=== PATIENT | female | born 1990 ===

== ENCOUNTER 2017-11-07 08:07 | Inpatient (IN) ==
[2017-11-07] MEDS ORDERED: Ringers Solution, Lactated 1,000 ML ONE (08:20)
[2017-11-07] MEDS ORDERED: Naloxone 0.4 MG/ML INJ IVP PRN (08:26)
[2017-11-07] MEDS ORDERED: Famotidine 20 MG/2 ML VIAL IVP PRN (08:26)
[2017-11-07] MEDS ORDERED: Metoclopramide 10 MG/2 ML VIAL IVP PRN ×2 (08:26→17:40)
[2017-11-07] MEDS ORDERED: Epidural Premix (fent/bupiv) 110 ML EP ONE (08:39)
[2017-11-07 09:02] LABS: Hematocrit 39.9 % (35.3-44.9); Mean Corpuscular HGB Conc 35.1 g/dL (31.6-35.5); Mean Corpuscular Hemoglobin 31.1 pg (28.0-33.3); Mean Corpuscular Volume 88.7 fL (83.0-100.0); Mean Platelet Volume 12.1 fL (9.4-12.4); Platelet Count 115 K/mcL (140-400); Red Cell Distribution Width 13.4 % (11.5-14.5)
[2017-11-07] MEDS ORDERED: Oxytocin 20 units/ LR 1000 mL 20 UNIT/1,000 ML BAG IVC ONE ×2 (09:07→16:33)
[2017-11-07 09:25] LABS: Neutrophils # 22.2 K/mcL (1.6-8.9)
[2017-11-07 09:26] LABS: Large Platelets Present (Not Present); Platelet Estimate Normal (Normal)
[2017-11-07] MEDS ORDERED: Lidocaine -MPF 1% 2 ML VIAL INFILT ONE (09:59)
[2017-11-07] MEDS ORDERED: Lidocaine -MPF 2% 5 ML VIAL ONE (10:04)
--- NOTE | 2017-11-07 10:36 | OB/GYN History & Physical ---
Date of Encounter: 11/07/17 Time of Encounter: 10:33 Assessment and Plan (1) Prolonged second stage Current visit: Yes Status: Acute admitted for delivery (2) 42 weeks gestation of Current visit: Yes Status: Acute admitted for delivery History of Present Illness Chief complaint: prolonged labor HPI: Ms. Richar Schmitz is a 27 year old female with EDC of . Gestational age of 42w3d presents for prolonged second stage of labor with thick meconium stained fluid. Patient reports SROM at 2100 on 11/06/2017. Patient reports +FM. Denies any complications with . Patient received care with Dr. Dubose. Patient reports she started pushing at home at since 0230. Patient educated on risk of shoulder dystocia, use of vacuum along with possibility of section. Patient declines at this time. Will try epidural, repositioning a rest. Blood type: O+ Rubella: Immune Hep B: Nonreactive GBS: Negative Past Med Surg Social Fam HX - Past Medical History Source: patient Medical history: no medical history Psychiatric history: no psych history - Past Surgical History Surgical History: no surgical history - Social History Smoking Status: Never smoker Alcohol use: none Drug use: none Current living situation: Home - Independent Activity Level: Independent ambulation Obstetrical History - Pregnancies : 2 Para: 0 Term: 0 : 0 Ab's: 1 Livin Medications and Allergies Pnv95/Ferrous Fumarate/FA [ Vitamin Tablet] 1 each PO 11/07/17 [History] 3 Allergy/AdvReac Type Severity Reaction Status Date / Time No Known Allergies Allergy Verified 11/07/17 08:37 Review of System OB - Constitutional Constitutional ROS IM: no chills, no fever(s), no headache(s) - Cardiovascular Cardiovascular: no chest pain, no edema, no lightheadedness, no palpitations, no syncope - Respiratory Respiratory: no cough - Gastrointestinal Gastrointestinal: no diarrhea, no heartburn, no nausea, no vomiting - Genitourinary Genitourinary: vaginal discharge (per HPI), no abnormal vaginal bleeding, no dysuria, no flank pain, no urinary urgency, no vaginal odor, no vaginal pruritis Exam - Vital Signs Vital signs: Initial Vital Signs Temp Pulse Resp 98.4 F 101 18 11/07/17 08:52 11/07/17 08:52 11/07/17 08:52 - Constitutional Constitutional: well developed, well nourished, no acute distress, average body habitus - HEENT HEENT: Normocephaly, Mucus Membranes Moist - Neck Neck exam: full ROM, supple - Lungs Respiratory exam: CTAB - Cardiovascular Cardiovascular exam: RRR, +S1, +S2 - Abdomen Abdomen: Present: bowel sounds normal, gravid, non tender - Extremities Extremities exam: full ROM, normal inspection Deep Tendon Reflex Grade: 2+ Normal - Cervix Dilation: 10 Effacement: 100 Station: +1 - Uterus Uterus exam: Present: normal size, normal contour - Anus/Rectum Anus/Rectum: Present: normal perianal skin - Comments Comments: FHR 130 bpm moderate variability +15x15 accels with variable decels with pushing noted Results Result Diagrams: 11/07/17 08:47 Abnormal lab results WBC 24.1 K/mcL (4.3-11.1) H 11/07/17 08:47 Plt Count 115 K/mcL (140-400) L 11/07/17 08:47 Band Neutrophils % 10.0 % (0-4) H 11/07/17 08:47 Neutrophils # 22.2 K/mcL (1.6-8.9) H 11/07/17 08:47 Large Platelets Present (Not Present) A 11/07/17 08:47 All other labs normal. - VTE Reasons for not Prescribing Prophylaxis: Treatment not Indicated - Low risk for VTE
--- NOTE | 2017-11-07 10:41 | Anesthesia Evaluation PreOp ---
Date of Encounter: 11/07/17 Time of Encounter: 09:19 - Past History Planned Operation: vaginal del, G1 postdate, prolonged second st Cardiac History: Denies any Significant Hx (ROM 2100 11/06, thick meconium.) Pulmonary History: Denies Any Significant HX GLASS CUTTER HAND History: Denies Any Significant HX Other Medical History: Denies Any Significant HX Anesthesia History: No Prior Anesthetic Complications, Past Anesthesia Alcohol Use: none Drug use: none Medications and Allergies Pnv95/Ferrous Fumarate/FA [ Vitamin Tablet] 1 each PO 11/07/17 [History] 3 Allergy/AdvReac Type Severity Reaction Status Date / Time No Known Allergies Allergy Verified 11/07/17 08:37 Anesthesia Results - Labs 11/07/17 08:47 Anesthesia Exam - HEENT Pupil (Motor): Pupils equal Mallampati: II Teeth: Normal Oral Opening: Greater than 3 - GLASS CUTTER HAND LOC: Oriented GLASS CUTTER HAND Motor: Normal RUE, Normal LUE, Normal RLE, Normal LLE, Normal Face GLASS CUTTER HAND Sensory: Normal: RUE, LUE, RLE, LLE, Face - Cardiac Rhythm: Regular Murmur: None - Pulmonary Breath Sounds: bilateral Clear Respiratory Effort: Symmetrical Anesthesia Assess/Plan ASA Score: 2 Modified Seth Scale for Level of Consciousness: Cooperative, oriented, and tranquil Anesthetic Plan: General, Regional (patient does not desire regional at this time.) Monitoring Plan: Standard Monitors Recovery Plan: PACU
[2017-11-07] MEDS ORDERED: Penicillin G Potassium 5,000,000 UNIT in 0.9 % Sodium Chloride Mini Bag 100 ML IVPB ONE (11:11)
--- NOTE | 2017-11-07 11:23 | Event Note ---
Date of Encounter: 11/07/17 Time of Encounter: 11:00 Discussed patient and POC with Dr. Ignacio. Will start antibiotics for prophylaxis.
--- NOTE | 2017-11-07 11:25 | Anesthesia Procedures ---
Date of Encounter: 11/07/17 Time of Encounter: 11:01 Procedures: Anesthesia - Epidural/Spinal Patient ID/Chart reviewed: Yes Patient examined: Yes (patient afebrile, not tachycardic, WBC 24K ) OB Eval: Gestational age: post term OB Eval: : 1 OB Eval: Dilated at (cm): 10 OB Eval: Contractions: Non-stressed pattern Consent Obtained: Yes (patient desires regional at this time.) Supplemental Oxygen: None/Room Air Supplemental Oxygen Rate (L/min): 10 Site Prep: Aseptic Technique, Sterile prep and drape, 0.5% Chlorhexidine/Alcohol Patient position: right lateral decubitus Local Anesthetic: Lidocaine 1% Amount of Local Anesthetic used: 2 Touhy Needle Gauge: 18 Touhy Needle Depth (cm): 6 Catheter Depth at Skin (cm): 10 Test Dose (1.5% Lido + Epi): Volume given (mls): 3 Test Dose Result: Negative Loading Dose: Other: 10 ml from solution Loading Dose Administered: Thru Catheter Infusion Med: 0.125% Bupivacaine w/ 2 mcg/ml Fentanyl Infusion Rate (mls/hr): [address]: Tegaderm, Tape Interspace Used: L3-L4 Loss of Resistance (SOPHIA): Yes (saline) Blood: No CSF: No Paresthesia: No Procedure: vss though out procedure, FHR stable per RN;s
[2017-11-07] MEDS: Ringers Solution, Lactated 1,000 ML IVC SCH ×2 (11:51→13:38)
[2017-11-07] MEDS ORDERED: Penicillin G Potassium 2,500,000 UNIT in 0.9 % Sodium Chloride 100 ML IVPB SCH (12:00)
[2017-11-07] MEDS ORDERED: Penicillin G Potassium 2,500,000 UNIT in D5% in Water 100 ML IVPB SCH (12:00)
[2017-11-07] MEDS ORDERED: CeFAZolin Premix DUPLEX 2,000 MG/50 ML BAG IVPB ONE (13:33)
[2017-11-07] MEDS ORDERED: *HR* Phenylephrine 10 MG/ML VIAL ONE (13:34)
[2017-11-07] MEDS ORDERED: Lidocaine/EPI 1:200k 2% PF 20 ML VIAL ONE (13:36)
[2017-11-07] MEDS ORDERED: *HR* Oxytocin 10 UNIT/ML VIAL IM ONE (13:51)
[2017-11-07] MEDS ORDERED: *HR* FentaNYL (PF) 100 MCG/2 ML VIAL ONE (13:53)
[2017-11-07] MEDS ORDERED: Morphine Sulfate/PF 5mg/10mL Vial ONE (13:53)
--- NOTE | 2017-11-07 15:22 | OB/GYN Procedure Note ---
<Clari Perez - Last Filed: 11/07/17 15:20> Section - Date of procedure: 11/07/17 Preop diagnosis: arrest of descent Post-op diagnosis: same Procedure: section Surgeon: Mark Ignacio Estimated blood loss (cc): 500 Was there an delinquent tax collection assistant present: Yes Microeconomics Professor: Clari Perez Anesthesiologist: Ternton Camacho Broker: Taiwo Stern Anesthesia Type: Epidural section complications: none Disposition: PACU Specimens: Placenta, Cord blood - Infant (s) A Infant Delivery Date: 11/07/17 Infant Delivery Time: 14:23 Presentation: vertex Position: ЕКАТЕРИНА Route of delivery: other () Gender: Female Viability: Viable Pounds: 8 Ounces: 11 Gram Weight: 3945 kg at 1 minute: 9 at 5 minutes: 9 Specimens collected: cord blood Placenta: complete extraction Cord: 3 umbilical vessels <Mark Ignacio - Last Filed: 11/08/17 17:41> Section - Narrative Narrative: Patient was taken to the operating room. She was placed in supine position. She was prepped and draped in usual manner. After appropriate timeout was performed, the abdomen was entered through standard Maylard incision. The Koby retractor was placed. The peritoneum overlying the lower uterine segment was incised in the U-shaped manner. The uterine cavity was entered sharply and extended laterally. Meconium stained fluid was noted. With fundal pressure, head was delivered. The infant was suctioned upon delivery of the head. The remainder of the infant was delivered, umbilical cord doubly clamped and cut, and the was handed to nursery staff for further evaluation. The placenta was removed and sent to pathology for analysis. The uterus was closed with 0 Monocryl. The peritoneum was reapproximated from the bladder to the uterus with a 2-0 Vicryl. After assurance of hemostasis, closed standard fashion using 0 Vicryl on the fascia and 3-0 Monocryl in the skin. Counts were correct. Patient did well and was taken to recovery room in stable condition.
[2017-11-07] MEDS ORDERED: *HR* Promethazine 25 MG/ML VIAL IVP PRN (15:37)
[2017-11-07] MEDS ORDERED: *HR* OxyCODONE Immed Rel 5 MG TABLET PO PRN (15:37)
[2017-11-07] MEDS ORDERED: MORPHINE SUL Oral CONC 10 MG/0.5 ML ORAL.SYG SL PRN (15:37)
[2017-11-07] MEDS ORDERED: Acetaminophen IV 1,000 MG/100 ML INFUS..BTL IVPB ONE (15:40)
[2017-11-07] MEDS ORDERED: ceFAZolin 1,000 MG in D5% in Water (Mini-Bag+) 100 ML IVPB SCH (17:40)
[2017-11-07] MEDS ORDERED: Ondansetron 4 MG/2 ML VIAL IVP PRN (17:40)
[2017-11-07] MEDS ORDERED: Acetaminophen IV 1,000 MG/100 ML INFUS..BTL IVPB SCH (17:40)
[2017-11-07] MEDS ORDERED: Sennosides 8.6 MG TABLET PO PRN (17:40)
[2017-11-07] MEDS ORDERED: Oxytocin 20 units/ LR 1000 mL 20 UNIT/1,000 ML BAG IVC SCH (17:40)
[2017-11-07] MEDS ORDERED: *HR* OxyCODONE/APAP 5/325 TABLET PO PRN (17:40)
[2017-11-07] MEDS ORDERED: Simethicone 80 MG TAB.CHEW PO PRN (17:40)
--- NOTE | 2017-11-07 18:23 | Anesthesia Evaluation Post Op ---
Date of Encounter: 11/07/17 Time of Encounter: 18:21 - Vital Signs Vital Signs: vss - Lungs Lungs: Clear Ascult./Percussion - Airway Airway: Non-obstructed - Mental Status Mental Status: Asleep with brisk response to light stimulation - Pain Pain Scale used: Soto-Nella (Faces) (tolerable) - Nausea Vomiting Nausea Vomiting: Not Present - Hydration Hydration: Ice chips - Discharge PostOp Status: Transfer Patient to floor
[2017-11-07] MEDS ORDERED: Acetaminophen IV 1,000 MG/100 ML INFUS..BTL IVPB PRN (19:26)
[2017-11-07] MEDS: ceFAZolin 1,000 MG in Water for inj. (sterile) 20 ML 10 ML IVP SCH (21:14)
[2017-11-08 04:32] LABS: Basophils % 0.1 %; Eosinophils % 0.1 %; Hematocrit 29.4 % (35.3-44.9); Immature Granulocytes % 0.6 % (0-4); Lymphocytes # 1.5 K/mcL (0.6-4.6); Lymphocytes % 7.9 %; Mean Corpuscular HGB Conc 34.7 g/dL (31.6-35.5); Mean Corpuscular Hemoglobin 30.8 pg (28.0-33.3); Mean Corpuscular Volume 88.8 fL (83.0-100.0); Monocytes # 0.9 K/mcL (0.0-1.3); Monocytes % 4.7 %; Neutrophils # 16.1 K/mcL (1.6-8.9); Platelet Count 114 K/mcL (140-400); Red Blood Count 3.31 M/mcL (3.82-4.97); Red Cell Distribution Width 13.4 % (11.5-14.5); Segmented Neutrophils % 86.6 %
[2017-11-08 04:36] LABS: Hemoglobin 10.2 g/dL (11.5-15.4)
[2017-11-08] MEDS: ceFAZolin 1,000 MG in Water for inj. (sterile) 20 ML 10 ML IVP SCH (05:50)
[2017-11-08] MEDS: Prenatal Vit/FA 1 EACH TABLET PO SCH (09:40)
--- NOTE | 2017-11-08 14:45 | OB/GYN Progress Note ---
Date of Encounter: 11/08/17 Time of Encounter: 14:42 - Assessment and Plan (1) Status post primary low transverse section Current Visit: Yes Status: Acute POD #1 Meeting all pp milestones Continue routine pp care Plan for discharge tomorrow (2) anemia Current Visit: Yes Status: Acute (3) Breast feeding status of mother Current Visit: Yes Status: Acute consult prn Subjective - Subjective Principal diagnosis: s/p section Interval history: Feeling well OOB without dizziness Cramping minimal - requesting ibuprofen every 2-3 hours Some nipple soreness Voiding without difficulty Passing flatus, no BM yet Tolerating regular diet Patient reports: appetite normal, voiding normally, pain well controlled, ambulating normally : doing well, nursing well Objective - Vital Signs Latest vital signs: Vital Signs Temp Pulse Resp BP Pulse Ox 11/08/17 14:13 98.6 F 108 18 127/81 100 11/08/17 09:55 16 11/08/17 08:42 98.5 F 89 10 99/58 97 11/07/17 23:00 98.7 F 99 18 117/72 96 11/07/17 21:14 98.2 F 104 16 118/75 98 11/07/17 20:19 98.3 F 94 16 114/72 96 11/07/17 18:37 98.5 F 111 12 104/67 97 11/07/17 17:45 98.5 F 103 12 107/67 97 Intake and Output 11/07/17 11/08/17 11/08/17 23:59 07:59 15:59 Intake Total 1600 / 1600 Output Total 2600 / 2600 1200 / 1200 2300 / 2300 Balance -2590 / -2590 -1190 / -1190 -700 / -700 Intake: IV Fluids Ancef 1,000 MG In Water for inj . (sterile) 10 ML @ 200 mls/hr IVP Q8H [facility] Rx#:[id number] Oral 1600 / 1600 Output: Urine 1200 / 1200 2300 / 2300 Catheter 2600 / 2600 Other: Meal Lunch Percent of Meal Consumed 100% Weight 71.305 kg - Exam Lungs: bilateral: normal Chest: Normal S1, Normal S2 Extremities: Present: normal Abdomen: Present: normal appearance, soft Incision: Present: normal, dressed Uterus: Present: normal, firm Fundal Height: 0 (at umbilicus) - Labs Labs: Laboratory Results - last 24 hr 11/08/17 04:21 WBC 18.6 H RBC 3.31 L Hgb 10.2 L D Hct 29.4 L MCV 88.8 MCH 30.8 MCHC 34.7 RDW 13.4 Plt Count 114 L MPV 12.0 Immature Gran % 0.6 Seg Neutrophils % 86.6 Lymphocytes % 7.9 Monocytes % 4.7 Eosinophils % 0.1 Basophils % 0.1 Neutrophils # 16.1 H Lymphocytes # 1.5 Monocytes # 0.9 Eosinophils # 0.0 Basophils # 0.0
[2017-11-08] MEDS: Ibuprofen 600 MG TABLET PO PRN ×2 (15:01→21:25)
[2017-11-09] MEDS: Ibuprofen 600 MG TABLET PO PRN ×2 (05:58→13:36)
[2017-11-09] MEDS: Prenatal Vit/FA 1 EACH TABLET PO SCH (08:25)
[2017-11-09 09:02] VITALS: BP 111/72
--- NOTE | 2017-11-09 10:47 | Discharge Summary ---
Date of Encounter: 11/09/17 Time of Encounter: 10:15 - Discharge Diagnosis (1) Status post primary low transverse section Priority: Primary Status: Acute Comments: POD #2 VSS Pain well controlled with percocet Meeting all milestones without difficulty Continue routine care Plan for discharge today with precautions (2) anemia Priority: Secondary Status: Acute Comments: Will discharge home on iron (3) Breast feeding status of mother Priority: Secondary Status: Acute - Discharge Medications Prescriptions: Ibuprofen [Motrin] 600 mg PO Q8HR PRN #30 tab PRN Reason: Mild Pain OxyCODONE/APAP 5/325 [Percocet 5/325 MG] 1 each PO Q8HR PRN 5 Days #15 tablet PRN Reason: Moderate Pain Docusate [Colace] 100 mg PO BID #60 capsule Ferrous Sulfate 325 mg PO DAILY #30 tablet Home Medications: Pnv95/Ferrous Fumarate/FA [ Vitamin Tablet] 1 each PO 11/07/17 [History] Docusate [Colace] 100 mg PO BID #60 capsule 11/09/17 [Rx] Ferrous Sulfate 325 mg PO DAILY #30 tablet 11/09/17 [Rx] Ibuprofen [Motrin] 600 mg PO Q8HR PRN #30 tab 11/09/17 [Rx] OxyCODONE/APAP 5/325 [Percocet 5/325 MG] 1 each PO Q8HR PRN 5 Days #15 tablet [Rx] Allergies/Adverse Reactions: 3 Allergy/AdvReac Type Severity Reaction Status Date / Time No Known Allergies Allergy Verified 11/07/17 08:37 Data Procedures and tests throughout hospitalization: Laboratory Tests 11/07/17 11/08/17 08:47 04:21 WBC 24.1 H 18.6 H RBC 4.50 3.31 L Hgb 14.0 10.2 L D Hct 39.9 29.4 L MCV 88.7 88.8 MCH 31.1 30.8 MCHC 35.1 34.7 RDW 13.4 13.4 Plt Count 115 L 114 L MPV 12.1 12.0 Immature Gran % 0.6 Seg Neutrophils % 82.0 86.6 Band Neutrophils % 10.0 H Lymphocytes % 4.0 7.9 Monocytes % 4.0 4.7 Eosinophils % 0.1 Basophils % 0.1 Neutrophils # 22.2 H 16.1 H Lymphocytes # 1.0 1.5 Monocytes # 1.0 0.9 Eosinophils # 0.0 Basophils # 0.0 Platelet Estimate Normal Large Platelets Present A Date of admission: 11/07/17 08:07 Primary care physician: Sonny Mcqueen Discharging clinician: Thomas Moon Anticipated date of discharge: 11/09/17 - Patient Status Disposition: Home, Self-Care Functional capacity at discharge: independent ambulation Overall status at discharge: patient is progressing back to baseline - Discharge Instructions Follow Up With: Sonny Mcqueen, DO [Primary Care Provider] - - Diet and Activity Activity: return to work once cleared by your PCP/specialist, resume usual activities as tolerated Diet: regular diet Hospital Course Procedures: - Date of procedure: 11/07/17 Preop diagnosis: arrest of descent Post-op diagnosis: same Procedure: section Surgeon: Mark Ignacio Estimated blood loss (cc): 500 Was there an assistant professor of religion present: Yes Highway Administrative Engineer: Clari Perez Anesthesiologist: Trenton Camacho Filler Feeder: Taiwo Stern Anesthesia Type: Epidural section complications: none Disposition: PACU Specimens: Placenta, Cord blood - (s) A Delivery Date: 11/07/17 Infant Delivery Time: 14:23 Presentation: vertex Position: ЕКАТЕРИНА Route of delivery: other () Gender: Female Viability: Viable Pounds: 8 Ounces: 11 Gram Weight: 3945 kg at 1 minute: 9 at 5 minutes: 9 Specimens collected: cord blood Placenta: complete extraction Cord: 3 umbilical vessels Reason for admission: other (prolonged second stage of labor) Delivery: section Episiotomy: none Laceration: none Other procedures: none complications: none Discharge diagnosis: post term preg-delivered baby: female Hospital course: - Date of procedure: 11/07/17 Preop diagnosis: arrest of descent Post-op diagnosis: same Procedure: section Surgeon: Mark Ignacio Estimated blood loss (cc): 500 Was there an assistant professor of religion present: Yes Highway Administrative Engineer: Clari Perez Anesthesiologist: Trenton Camacho Filler Feeder: Taiwo Stern Anesthesia Type: Epidural section complications: none Disposition: PACU Specimens: Placenta, Cord blood - (s) A Infant Delivery Date: 11/07/17 Delivery Time: 14:23 Presentation: vertex Position: ЕКАТЕРИНА Route of delivery: other () Gender: Female Viability: Viable Pounds: 8 Ounces: 11 Gram Weight: 3945 kg at 1 minute: 9 at 5 minutes: 9 Specimens collected: cord blood Placenta: complete extraction Cord: 3 umbilical vessels Stable in PP and appropriate for discharge Time Attestation: Total time spent providing and/or coordinating discharge services: Time Spent: Greater than 30 minutes - VTE Reasons for not Prescribing Prophylaxis: Treatment not Indicated - Low risk for VTE Documentation of Mechanical Device: Intermittent pneumatic compression device Exam - Constitutional Vitals: Temp Pulse Resp BP Pulse Ox 97.6 F 96 16 111/72 98 11/09/17 08:30 11/09/17 08:30 11/09/17 08:30 11/09/17 08:30 11/09/17 08:30 General appearance IM: A&O X 3 - Respiratory Respiratory exam: Present: CTAB. Absent: rales, respiratory distress, wheezes - Cardiovascular Cardiovascular exam IM: Present: +S1, +S2, tachycardia - GI/Abdominal GI/Abdominal exam IM: hypoactive bowel sounds Additional comments: Wound vac intact. No signs of discharge or infection - Uterine Tone: Firm Uterus Position: At Umbilicus - Extremities Exam Extremities exam IM: Present: full ROM, pedal edema (BL 1+ ), warm, radial pulses palpable and symmetrical - Neurological Exam Neurological exam: oriented X3, no focal deficits - Psychiatric Additional comments: Patient is in good mood
== END 2017-11-09 14:55 | disposition home or self-care (01) | DRG 540 ==
LOC: 1NENULAB → OBSVTOIN 08:07 → 1NENUOBS 17:39
PROVIDERS: ADMIT Obstetrics & Gynecology; ATTEND Obstetrics & Gynecology